=== PATIENT | male | born 1985 | race American Indian/Alaskan Native ===

== ENCOUNTER 2018-09-06 12:10 | Emergency (ER) | payer BC ==
[2018-09-06 12:16] VITALS: BP 136/76
[2018-09-06] MEDS ORDERED: ULTRAM PO ONE (12:44)
[2018-09-06] MEDS ORDERED: KEFLEX PO ONE (12:44)
--- NOTE | 2018-09-06 12:45 | Emergency Department Report ---
Abscess Boil HPI - HPI Chief Complaint: Skin/Abscess/Foreign Body Stated Complaint: CYST Time Seen by Provider: 09/06/18 12:36 Duration: 5 Days Location: Sacral/Pilonidal Severity: Mild History: Yes Pain, Yes Previous History, No Fever, No Purulent Drainage, No Numbness, No Foreign Body, No Insect Bite HPI: Patient is a 33-year-old -[place] male who comes to the ER with right buttocks pain. Patient has a history of chronic pilonidal cyst dating back to the age of 2. He has been on chronic antibiotics. He has seen numerous general surgeons. He does not have an abscess today it is a cellulitic area. He has no fever Home Medications: Previous Rx's Medication Instructions Recorded Last Taken Type cephALEXin [Keflex] 500 mg PO Q12HR #20 cap 09/06/18 Unknown Rx traMADol [Ultram] 50 mg PO Q6HR PRN #12 tablet 09/06/18 Unknown Rx Allergies/Adverse Reactions: Allergies Allergy/AdvReac Type Severity Reaction Status Date / Time No Known Allergies Allergy Unverified 09/06/18 12:16 ED Review of Systems ROS: Stated complaint: CYST Other details as noted in HPI Comment: All other systems reviewed and negative Constitutional: denies: chills, fever Eyes: denies: eye pain ENT: denies: ear pain Respiratory: denies: see HPI Cardiovascular: denies: palpitations Endocrine: denies: flushing Gastrointestinal: denies: abdominal pain, nausea Genitourinary: denies: urgency Musculoskeletal: denies: back pain Skin: as per HPI, lesions. denies: rash Neurological: denies: headache Psychiatric: denies: depression Hematological/Lymphatic: denies: easy bleeding ED Past Medical Hx - Past Medical History Previous Medical History?: Yes Additional medical history: PILON. CYSTS SINCE 2 YEARS OF AGE - Surgical History Past Surgical History?: Yes Additional Surgical History: cystectomy from buttocks - Social History Smoking Status: Never Smoker Substance Use Type: None - Medications Home Medications: Home Medications Medication Instructions Recorded Confirmed Last Taken Type cephALEXin [Keflex] 500 mg PO Q12HR #20 cap 09/06/18 Unknown Rx traMADol [Ultram] 50 mg PO Q6HR PRN #12 tablet 09/06/18 Unknown Rx ED Abscess Boil Physical Exam - Exam General: Vital signs noted. No distress. Alert and acting appropriately. Exam: Yes Tenderness, Yes Surrounding Cellulites/Erythema, Yes Normal Neurologic Exam, Yes Normal Circulation, No Fluctuance, No Lymphangitis, No Crepitation, No Heart Murmur ED Course Vital Signs 09/06/18 12:14 Temperature 98.1 F Pulse Rate 69 Respiratory 16 Rate Blood Pressure 136/76 O2 Sat by Pulse 99 Oximetry Critical care attestation.: If time is entered above; I have spent that time in minutes in the direct care of this critically ill patient, excluding procedure time. ED Medical Decision Making - Medical Decision Making The area is cellulitic in nature. It is not abscessed. Performing an I&D on this at this time would be coming through disease tissue. Patient states that he knew we would say that when he was in pain. I will start patient on antibiotics and have him do Epsom salt soaks hoping that the area will come to a head. Patient verbalizes understanding. Patient also states that he has been on antibiotics over and over. He states that Bactrim does not work. For that reason on Benadryl and Keflex. Patient will be discharged home on Keflex and with Ultram for pain. He will be following up with his primary care physician ED Disposition Clinical Impression: Cellulitis Disposition: DC-01 TO HOME OR SELFCARE Is pt being admited?: No Does the pt Need Aspirin: No Condition: Stable Instructions: Abscess (ED) Prescriptions: cephALEXin [Keflex] 500 mg PO Q12HR #20 cap traMADol [Ultram] 50 mg PO Q6HR PRN #12 tablet PRN Reason: Pain Referrals: [facility] [Outside] - 3-5 Days Time of Disposition: 12:45
== END 2018-09-06 13:24 | disposition home or self-care (01) ==
LOC: ED 12:10
DX: L03.317 Cellulitis of buttock (principal)
CPT/HCPCS: 99282